=== PATIENT | male | born 1970 | race Caucasian/White ===

== ENCOUNTER 2021-08-02 12:46 | Observation (INO) | payer BC ==
--- NOTE | 2021-08-02 14:51 | EDM.PDOC ---
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 States he was riding on his truck when oxygen level dipped down to the 70s. States he does not feel short of breath now and it occasionally happens. He states that when he sleeps at night to he has this. Supposed to be seeing for sleep study but has not had time to follow-up. Denies any chest pain currently fever chills nausea vomiting or other complaints. You tested negative for Covid a few days ago as well. He states that he placed on a [facility] [employer] not too long ago around both kids. - Related Data Allergies Allergy/AdvReac Type Severity Reaction Status Date / Time No Known Allergies Allergy Verified 08/02/21 12:59 Home Meds: Home Meds Cyclobenzaprine [Flexeril] 10 mg PO TID 01/22/16 [History] oxyCODONE HCl/Acetaminophen [oxyCODONE-Acetaminophen 5-325] 1 tab PO Q4H PRN 01/22/16 [History] Past Medical History Musculoskeletal History: Reports: Back Pain, Chronic Other Musculoskeletal History: fell 30 years ago, disc problem since - Infectious Disease History Infectious Disease History: Reports: None - Past Surgical History HEENT Surgical History: Reports: None Musculoskeletal Surgical History: Reports: None Social & Family History - Family History Family Medical History: No Pertinent Family History - Recreational Drug Use Recreational Drug Use: No ED ROS GENERAL - Review of Systems Review Of Systems: See Below Constitutional: Reports: No Symptoms HEENT: Reports: No Symptoms Respiratory: Reports: No Symptoms Cardiovascular: Reports: No Symptoms Endocrine: Reports: No Symptoms GI/Abdominal: Reports: No Symptoms : Reports: No Symptoms Musculoskeletal: Reports: No Symptoms Skin: Reports: No Symptoms Neurological: Reports: No Symptoms Psychiatric: Reports: No Symptoms Hematologic/Lymphatic: Reports: No Symptoms Immunologic: Reports: No Symptoms ED EXAM, GENERAL - Physical Exam Exam: See Below Exam Limited By: No Limitations General Appearance: Alert, WD/WN, No Apparent Distress Nose: Normal Inspection Throat/Mouth: Normal Inspection Head: Atraumatic Respiratory/Chest: No Respiratory Distress, Lungs Clear, Normal Breath Sounds Cardiovascular: Normal Peripheral Pulses, Regular Rate, Rhythm GI/Abdominal: Normal Bowel Sounds, Soft, Non-Tender Extremities: Normal Inspection, Normal Range of Motion Neurological: Alert, Oriented, Normal Cognition, Normal Gait #1 Interpretation EKG Date: 08/02/21 Time: 14:53 Rhythm: NSR Rate (Beats/Min): 100 ST-T: Normal Course - Vital Signs Last Recorded V/S: Last Vital Signs Temp 97.4 F 08/02/21 12:59 Pulse 101 H 08/02/21 12:59 Resp 16 08/02/21 12:59 BP 124/73 08/02/21 12:59 Pulse Ox 94 L 08/02/21 12:59 - Orders/Labs/Meds Orders: Active Orders 24 hr Category Date Time Status Chest PE [Ang Chest] [CT] Stat Exams 08/02/21 17:21 Ordered Labs: Laboratory Tests 08/02/21 08/02/21 08/02/21 Range/Units 14:57 14:57 16:40 WBC 15.92 H (4.0-11.0) K/uL RBC 4.98 (4.50-5.90) M/uL Hgb 14.9 (13.0-17.0) g/dL Hct 44.4 (38.0-50.0) % MCV 89.2 (80.0-98.0) fL MCH 29.9 (27.0-32.0) pg MCHC 33.6 (31.0-37.0) g/dL RDW Std Deviation 46.1 (28.0-62.0) fl RDW Coeff of Wayne 14 (11.0-15.0) % Plt Count 241 (150-400) K/uL MPV 10.00 (7.40-12.00) fL Neut % (Auto) 80.6 H (48.0-80.0) % Lymph % (Auto) 13.3 L (16.0-40.0) % Scott % (Auto) 5.4 (0.0-15.0) % Eos % (Auto) 0.6 (0.0-7.0) % Baso % (Auto) 0.1 (0.0-1.5) % Neut # (Auto) 12.8 H (1.4-5.7) K/uL Lymph # (Auto) 2.1 (0.6-2.4) K/uL Scott # (Auto) 0.9 H (0.0-0.8) K/uL Eos # (Auto) 0.1 (0.0-0.7) K/uL Baso # (Auto) 0.0 (0.0-0.1) K/uL Nucleated RBC % 0.0 /100WBC Nucleated RBCs # 0 K/uL ABG pH 7.57 H (7.35-7.45) ABG pCO2 29 L (35-45) mmHG ABG pO2 74 L (80-105) mmHG ABG HCO3 26 (22-26) mEq/L ABG Total CO2 22.7 L (23-27) mmol/L ABG Base Excess 5.2 H (-2.0-3.0) Sodium 138 (136-148) mmol/L Potassium 3.9 (3.5-5.1) mmol/L Chloride 99 (98-107) mmol/L Carbon Dioxide 28.5 (21.0-32.0) mmol/L BUN 12 (7.0-18.0) mg/dL Creatinine 0.9 (0.8-1.3) mg/dL Est Cr Clr Drug Dosing 111.63 mL/min Estimated GFR (MDRD) > 60.0 ml/min Glucose 161 H (74-106) mg/dL Calcium 9.8 (8.5-10.1) mg/dL Total Bilirubin 0.4 (0.2-1.0) mg/dL AST 24 (15-37) IU/L ALT 61 (14-63) IU/L Alkaline Phosphatase 66 (46-116) U/L Troponin I < 0.050 (0.000-0.056) ng/mL Total Protein 7.6 (6.4-8.2) g/dL Albumin 3.7 (3.4-5.0) g/dL Globulin 3.9 (2.6-4.0) g/dL Albumin/Globulin Ratio 0.9 (0.9-1.6) - Re-Assessments/Exams Free Text/Narrative Re-Assessment/Exam: 08/02/21 17:22 Patient oxygen level does drop down to 80% with ambulation he gets very labored breathing. Is been tachycardic here without initially due to him use albuterol before arrival we will now get a CT PE to rule out any pulmonary emboli. 08/02/21 18:39 Patient gets up and moves around his oxygen level drops down to the mid 80s. Patient also tachycardic but has been using albuterol inhaler. Which are without PE will also admit for observation for this hypoxia. Patient also gets fatigued when he walks around as well. Departure - Departure Time of Disposition: 18:41 Disposition: Refer to Observation Condition: Good Clinical Impression: Hypoxia - Discharge Information *PRESCRIPTION DRUG MONITORING PROGRAM REVIEWED*: Not Applicable *COPY OF PRESCRIPTION DRUG MONITORING REPORT IN PATIENT PORTILLO: Not Applicable Referrals: PCP,None [Primary Care Provider] - Forms: ED Department Discharge Sepsis Event Note (ED) - Evaluation Sepsis Screening Result: No Definite Risk - Focused Exam Vital Signs: Vital Signs Temp Pulse Resp BP Pulse Ox 08/02/21 12:59 97.4 F 101 H 16 124/73 94 L - My Orders Last 24 Hours: My Active Orders 08/02/21 17:21 Chest PE [Ang Chest] [CT] Stat - Assessment/Plan Last 24 Hours: My Active Orders 08/02/21 17:21 Chest PE [Ang Chest] [CT] Stat Plan: Patient is a 50-year-old male presents today just for low oxygen. Patient here satting 94% on room air does not seem to be in distress. We will obtain x-ray labs and reassess.
[2021-08-02 15:36] LABS: BLOOD UREA NITROGEN,BUN 12 mg/dL (7.0-18.0); CARBON DIOXIDE,CO2 28.5 mmol/L (21.0-32.0); CHLORIDE,CL 99 mmol/L (98-107); GLUCOSE RANDOM 161 mg/dL (74-106); POTASSIUM,K 3.9 mmol/L (3.5-5.1); SODIUM,NA 138 mmol/L (136-148)
--- NOTE | 2021-08-02 15:50 | CR ---
INDICATION: Cough TECHNIQUE: Single view chest. FINDINGS: The lungs are clear. The heart, mediastinum and pulmonary vessels are of normal size. There is no evidence of pleural disease. IMPRESSION: Negative chest. Dictated by Gaby Feltno MD @ 08/02/2021 3:49:11 PM (Electronically Signed)
[2021-08-02] MEDS ORDERED: Iopamidol 755 MG/ML 500 ML Multipack Bottle IVPUSH ONE (19:06)
[2021-08-02 20:04] LABS: HEMOGLOBIN A1C 7.7 %
--- NOTE | 2021-08-02 20:15 | CT ---
Clinical INDICATION: Shortness of breath. TECHNIQUE: Axial intravenously infused CT cuts were performed through the chest during the peak phase of pulmonary arterial contrast opacification. 100 mL of Isovue-370 has been injected intravenously. Findings : Contrast opacification of this pulmonary arteries on is not optimal. When allowing for this limitation, there are no pulmonary emboli. There is no aortic aneurysm or dissection. There are no pulmonary nodules, masses or infiltrates. There are no pleural or pericardial fluid collections. There are no enlarged hilar or mediastinal or axillary lymph nodes. The thoracic inlet appears normal. There is a small hiatal hernia. The visualized liver, spleen, pancreas, adrenals and upper poles of both kidneys appear normal. IMPRESSION: 1. Suboptimal contrast opacification of the peripheral pulmonary arteries. When allowing for this limitation, the study is negative for pulmonary emboli. 2. Small hiatal hernia. Please note that all CT scans at this facility use dose modulation, iterative reconstruction, and/or weight-based dosing when appropriate to reduce radiation dose to as low as reasonably achievable. Dictated by Anjum Guerrero MD @ 08/02/2021 8:14:14 PM (Electronically Signed)
--- NOTE | 2021-08-02 21:03 | PCM.HP.2 ---
H&P History of Present Illness - General Date of Service: 08/02/21 Admit Problem/Dx: Admission Diagnosis/Problem Admission Diagnosis/Problem Hypoxia Source of Information: Patient, EMS, Provider History Limitations: Reports: No Limitations - History of Present Illness Initial Comments - Free Text/Narative: 50 year old morbidly obese male with resp distress a nd near syncope. hx of whitaker and worsening bronchitis 4 days ago , started on nebs alb and puffer and helped initially but then worsened to point of not being able to go outside or walk without severe whitaker. no chest pains and checked sats and down to 77% at home and felt feint and started head nodding in car on way here. . bronchitis and cough not responding to nebs until given this am abnd felt little less tight. covid vaccine booster due but vaccinated and had back in november/2020 with 2 days of resp distress then resolved. hx of no smoking . hx of snoring and fitful sleep. no known cad but mild abnormalities on ekg. no hx of known v tach or afib or arrythmias but long standing intermittent tachycardia and elevated heart rate on beta jade. no known resp issues asthma but farmers pneumonia . + orthopnea for 5 years. + whitaker but still does hard work , mild cold sensitively until 4 days ago. no cva or chf known . fam hx of cv disease. hx of dm 2 x 3-4 years on meds and a1c 7-8 no renal insuff or liver disease and minimal etoh intake. no sleep study and snores and chronic insomnia //// stress level high no depression but occasional tachipnea and anxiety episodes. no stress test ever. no p.e. or dvt. p.e. hypoxia better with big breathes and worse with walking . edema plus one . persistant tachicardia to 100-110 mild tachipnea. neck 20 plus inches. throat mallipatti 4 . cor rrr with no s3/4 distant and regular. lab reviewed chest xray normal port. pulm ct angio// negative. assess: plan admit for observation and tests . 1// whitaker sec. to bronchitis repeat covid test pending but neg 4 days ago. treat as emperic bronchitis. needs cardiac eval. medrol dose pac to be started as well . echo and sleep study telemetry overnight. pending neg covid test needs booster. 2// needs sleep studya nd treatment of likely obesity/hypoventilation syndrome. start lasix tonight. stop lisinopril for now and start losartin to prevent angioedema . control of b.p required sec to tachicardia but may be triggerring bronchospasm and needs pfts . hold beta jade for now if on . 3// weight loss needed and addressed diabetes not bad but not as goood as needs to be. back limits exertion and eats fairly helathy actually per . 4// eval for weight reduction surgery may be needed. boh Onset of Symptoms: Reports: Gradual Symptom Onset Date: 07/28/21 Duration of Symptoms: Reports: Day(s): (5) Location: Reports: Chest Improves with: Reports: Rest Worsens with: Reports: Breathing Associated Symptoms: Reports: No Other Symptoms - Related Data Allergies/Adverse Reactions: Allergies Allergy/AdvReac Type Severity Reaction Status Date / Time No Known Allergies Allergy Verified 08/02/21 12:59 Home Medications: Home Meds Cyclobenzaprine [Flexeril] 10 mg PO TID 01/22/16 [History] oxyCODONE HCl/Acetaminophen [oxyCODONE-Acetaminophen 5-325] 1 tab PO Q4H PRN 01/22/16 [History] Past Medical History Musculoskeletal History: Reports: Back Pain, Chronic Other Musculoskeletal History: fell 30 years ago, disc problem since - Infectious Disease History Infectious Disease History: Reports: None, Novel Coronavirus - Past Surgical History HEENT Surgical History: Reports: None Musculoskeletal Surgical History: Reports: None Social & Family History - Family History Family Medical History: No Pertinent Family History Cardiac: Reports: CAD, Heart Failure - Recreational Drug Use Recreational Drug Use: No H&P Review of Systems - Review of Systems: Review Of Systems: See Below General: Reports: No Symptoms HEENT: Reports: No Symptoms Pulmonary: Reports: No Symptoms, Shortness of Breath, Wheezing, Cough Cardiovascular: Reports: No Symptoms Gastrointestinal: Reports: No Symptoms Genitourinary: Reports: No Symptoms Musculoskeletal: Reports: No Symptoms Skin: Reports: No Symptoms Psychiatric: Reports: No Symptoms Neurological: Reports: No Symptoms Hematologic/Lymphatic: Reports: No Symptoms Immunologic: Reports: No Symptoms Exam - Exam Exam: See Below - Vital Signs Vital Signs: Last Vital Signs Temp 36.3 C 08/02/21 12:59 Pulse 101 H 08/02/21 12:59 Resp 16 08/02/21 12:59 BP 124/73 08/02/21 12:59 Pulse Ox 94 L 08/02/21 12:59 Weight: 185.973 kg - Exam General: Alert, Oriented, 4 HEENT: Conjunctiva Clear, EACs Clear, EOMI, Hearing Intact, Mucosa Moist & Reasnor, Nares Patent, Normal Nasal Septum, Posterior Pharynx Clear, TMs Clear, Other (mallipatti 4 ), PERRLA Neck: Supple, Trachea Midline, 2 Lungs: Clear to Auscultation, Normal Respiratory Effort, Decreased Breath Sounds Cardiovascular: Regular Rate, Regular Rhythm, Tachycardia GI/Abdominal Exam: Normal Bowel Sounds, Soft, Non-Tender, No Organomegaly, No Distention, No Abnormal Bruit, No Mass, Pelvis Stable (Male) Exam: No Hernia, Normal Inspection, Normal Prostate, Circumcised Rectal (Males) Exam: Normal Rectal Tone, Prostate Normal, Deferred. No: Normal Exam Back Exam: Normal Inspection, Full Range of Motion, NT Extremities: Normal Inspection, Normal Range of Motion, Non-Tender, Normal Capillary Refill, Pedal Edema. No: No Pedal Edema Peripheral Pulses: 1+: Carotid (L), Carotid (R) Skin: Warm, Dry, Intact Neurological: Cranial Nerves Intact, Reflexes Equal Bilateral Neuro Extensive - Mental Status: Alert, Oriented x3, Normal Mood/Affect, Normal Cognition Neuro Extensive - Motor, Sensory, Reflexes: CN II-XII Intact, Normal Gait, Normal Reflexes Psychiatric: Alert, Normal Affect, Normal Mood - Patient Data Lab Results Last 24 hrs: Laboratory Results - last 24 hr 08/02/21 08/02/21 08/02/21 Range/Units 14:57 14:57 14:57 WBC 15.92 H (4.0-11.0) K/uL RBC 4.98 (4.50-5.90) M/uL Hgb 14.9 (13.0-17.0) g/dL Hct 44.4 (38.0-50.0) % MCV 89.2 (80.0-98.0) fL MCH 29.9 (27.0-32.0) pg MCHC 33.6 (31.0-37.0) g/dL RDW Std Deviation 46.1 (28.0-62.0) fl RDW Coeff of Wayne 14 (11.0-15.0) % Plt Count 241 (150-400) K/uL MPV 10.00 (7.40-12.00) fL Neut % (Auto) 80.6 H (48.0-80.0) % Lymph % (Auto) 13.3 L (16.0-40.0) % Brooks % (Auto) 5.4 (0.0-15.0) % Eos % (Auto) 0.6 (0.0-7.0) % Baso % (Auto) 0.1 (0.0-1.5) % Neut # (Auto) 12.8 H (1.4-5.7) K/uL Lymph # (Auto) 2.1 (0.6-2.4) K/uL Brooks # (Auto) 0.9 H (0.0-0.8) K/uL Eos # (Auto) 0.1 (0.0-0.7) K/uL Baso # (Auto) 0.0 (0.0-0.1) K/uL Nucleated RBC % 0.0 /100WBC Nucleated RBCs # 0 K/uL ABG pH (7.35-7.45) ABG pCO2 (35-45) mmHG ABG pO2 (80-105) mmHG ABG HCO3 (22-26) mEq/L ABG Total CO2 (23-27) mmol/L ABG Base Excess (-2.0-3.0) Sodium 138 (136-148) mmol/L Potassium 3.9 (3.5-5.1) mmol/L Chloride 99 (98-107) mmol/L Carbon Dioxide 28.5 (21.0-32.0) mmol/L BUN 12 (7.0-18.0) mg/dL Creatinine 0.9 (0.8-1.3) mg/dL Est Cr Clr Drug Dosing 111.63 mL/min Estimated GFR (MDRD) > 60.0 ml/min Glucose 161 H (74-106) mg/dL Hemoglobin A1c 7.7 H (4.5 - 6.2) % Calcium 9.8 (8.5-10.1) mg/dL Total Bilirubin 0.4 (0.2-1.0) mg/dL AST 24 (15-37) IU/L ALT 61 (14-63) IU/L Alkaline Phosphatase 66 (46-116) U/L Troponin I < 0.050 (0.000-0.056) ng/mL Total Protein 7.6 (6.4-8.2) g/dL Albumin 3.7 (3.4-5.0) g/dL Globulin 3.9 (2.6-4.0) g/dL Albumin/Globulin Ratio 0.9 (0.9-1.6) 08/02/21 Range/Units 16:40 WBC (4.0-11.0) K/uL RBC (4.50-5.90) M/uL Hgb (13.0-17.0) g/dL Hct (38.0-50.0) % MCV (80.0-98.0) fL MCH (27.0-32.0) pg MCHC (31.0-37.0) g/dL RDW Std Deviation (28.0-62.0) fl RDW Coeff of Wayne (11.0-15.0) % Plt Count (150-400) K/uL MPV (7.40-12.00) fL Neut % (Auto) (48.0-80.0) % Lymph % (Auto) (16.0-40.0) % Brooks % (Auto) (0.0-15.0) % Eos % (Auto) (0.0-7.0) % Baso % (Auto) (0.0-1.5) % Neut # (Auto) (1.4-5.7) K/uL Lymph # (Auto) (0.6-2.4) K/uL Brooks # (Auto) (0.0-0.8) K/uL Eos # (Auto) (0.0-0.7) K/uL Baso # (Auto) (0.0-0.1) K/uL Nucleated RBC % /100WBC Nucleated RBCs # K/uL ABG pH 7.57 H (7.35-7.45) ABG pCO2 29 L (35-45) mmHG ABG pO2 74 L (80-105) mmHG ABG HCO3 26 (22-26) mEq/L ABG Total CO2 22.7 L (23-27) mmol/L ABG Base Excess 5.2 H (-2.0-3.0) Sodium (136-148) mmol/L Potassium (3.5-5.1) mmol/L Chloride (98-107) mmol/L Carbon Dioxide (21.0-32.0) mmol/L BUN (7.0-18.0) mg/dL Creatinine (0.8-1.3) mg/dL Est Cr Clr Drug Dosing mL/min Estimated GFR (MDRD) ml/min Glucose (74-106) mg/dL Hemoglobin A1c (4.5 - 6.2) % Calcium (8.5-10.1) mg/dL Total Bilirubin (0.2-1.0) mg/dL AST (15-37) IU/L ALT (14-63) IU/L Alkaline Phosphatase (46-116) U/L Troponin I (0.000-0.056) ng/mL Total Protein (6.4-8.2) g/dL Albumin (3.4-5.0) g/dL Globulin (2.6-4.0) g/dL Albumin/Globulin Ratio (0.9-1.6) Result Diagrams: 08/02/21 14:57 08/02/21 14:57 Sepsis Event Note - Evaluation Sepsis Screening Result: No Definite Risk - Focused Exam Vital Signs: Vital Signs Temp Pulse Resp BP Pulse Ox 08/02/21 12:59 36.3 C 101 H 16 124/73 94 L - Problem List (1) Morbid obesity with BMI of 50.0-59.9, adult SNOMED Code(s): 045821672, 55130170363172 ICD Code: E66.01 - MORBID (SEVERE) OBESITY DUE TO EXCESS CALORIES; Z68.43 - BODY MASS INDEX [BMI] 50.0-59.9, ADULT Status: Acute Priority: High Curren t Visit: Yes Onset Date: ~08/02/21 Problem Details: highly santosh. 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 SNOMED Code(s): 22150558, 179649061 ICD Code: I50.40 - UNSP COMBINED SYSTOLIC AND DIASTOLIC (CONGESTIVE) HRT FAIL Status: Acute Priority: Medium Current Visit: Yes Onset Date: ~08/02/21 Qualifiers: Heart failure chronicity: chronic Qualified Code(s): I50.42 - Chronic combined systolic (congestive) and diastolic (congestive) heart failure Problem List Initiated/Reviewed/Updated: Yes Orders Last 24hrs: Active Orders 24 hr Category Date Time Status Admission Status [Patient Status] [ADT] Stat ADT 08/02/21 18:53 Active Assessment/Plan Comment:: [birth year]89 year old morbidly obese male with resp distress a nd near syncope. hx of whitaker and worsening bronchitis 4 days ago , started on nebs alb and puffer and helped initially but then worsened to point of not being able to go outside or walk without severe whitaker. no chest pains and checked sats and down to 77% at home and felt feint and started head nodding in car on way here. . bronchitis and cough not responding to nebs until given this am abnd felt little less tight. covid vaccine booster due but vaccinated and had back in november/2020 with 2 days of resp distress then resolved. hx of no smoking . hx of snoring and fitful sleep. no known cad but mild abnormalities on ekg. no hx of known v tach or afib or arrythmias but long standing intermittent tachycardia and elevated heart rate on beta jade. no known resp issues asthma but farmers pneumonia . + orthopnea for 5 years. + whitaker but still does hard work , mild cold sensitively until 4 days ago. no cva or chf known . fam hx of cv disease. hx of dm 2 x 3-4 years on meds and a1c 7-8 no renal insuff or liver disease and minimal etoh intake. no sleep study and snores and chronic insomnia //// stress level high no depression but occasional tachipnea and anxiety episodes. no stress test ever. no p.e. or dvt. p.e. hypoxia better with big breathes and worse with walking . edema plus one . persistant tachicardia to 100-110 mild tachipnea. neck 20 plus inches. throat mallipatti 4 . cor rrr with no s3/4 distant and regular. lab reviewed chest xray normal port. pulm ct angio// negative. assess: plan admit for observation and tests . 1// whitaekr sec. to bronchitis repeat covid test pending but neg 4 days ago. treat as emperic bronchitis. needs cardiac eval. medrol dose pac to be started as well . echo and sleep study telemetry overnight. pending neg covid test needs booster. 2// needs sleep studya nd treatment of likely obesity/hypoventilation syndrome. start lasix tonight. stop lisinopril for now and start losartin to prevent angioedema . control of b.p required sec to tachicardia but may be triggerring bronchospasm and needs pfts . hold beta jade for now if on . 3// weight loss needed and addressed diabetes not bad but not as goood as needs to be. back limits exertion and eats fairly helathy actually per . 4// eval for weight reduction surgery may be needed. boh - Mortality Measure Prognosis:: Good
[2021-08-02] MEDS ORDERED: Temazepam 15 MG Cap PO PRN (21:13)
[2021-08-02] MEDS ORDERED: Acetaminophen/HYDROcodone 325-5 MG Tab PO PRN (21:13)
[2021-08-02] MEDS ORDERED: Enoxaparin 40 MG/0.4 ML Syringe SUBCUT SCH (21:15)
[2021-08-02] MEDS ORDERED: Acetaminophen/oxyCODONE 325-5 MG Tab PO PRN (21:22)
[2021-08-02 22:12] LABS: BLOOD UREA NITROGEN,BUN 12 mg/dL (7.0-18.0); CARBON DIOXIDE,CO2 25.5 mmol/L (21.0-32.0); CHLORIDE,CL 99 mmol/L (98-107); GLUCOSE RANDOM 155 mg/dL (74-106); POTASSIUM,K 4.1 mmol/L (3.5-5.1); SODIUM,NA 139 mmol/L (136-148)
[2021-08-02] MEDS: Cephalexin 250 MG Cap PO SCH (22:17)
[2021-08-02] MEDS ORDERED: Albuterol 0.083% 2.5 MG/3 ML Neb Soln NEB PRN (22:29)
[2021-08-03] MEDS: Cephalexin 250 MG Cap PO SCH ×2 (05:09→12:41)
[2021-08-03] MEDS ORDERED: predniSONE 20 MG Tab PO SCH (08:30)
[2021-08-03] MEDS ORDERED: Furosemide 20 MG Tab PO SCH (09:00)
[2021-08-03 11:54] VITALS: BP 125/80; PULSE 89
--- NOTE | 2021-08-03 11:56 | PCM.DCSUM1 ---
Discharge Summary - Hospital Course Brief History: 50 year old morbidly obese male with resp distress a nd near syncope. hx of whitaker and worsening bronchitis 4 days ago , started on nebs alb and puffer and helped initially but then worsened to point of not being able to go outside or walk without severe whitaker. no chest pains and checked sats and down to 77% at home and felt feint and started head nodding in car on way here. . bronchitis and cough not responding to nebs until given this am abnd felt little less tight. covid vaccine booster due but vaccinated and had back in november/2020 with 2 days of resp distress then resolved. hx of no smoking . hx of snoring and fitful sleep. no known cad but mild abnormalities on ekg. no hx of known v tach or afib or arrythmias but long standing intermittent tachycardia and elevated heart rate on beta jade. no known resp issues asthma but farmers pneumonia . + orthopnea for 5 years. + whitaker but still does hard work , mild cold sensitively until 4 days ago. no cva or chf known . fam hx of cv disease. hx of dm 2 x 3-4 years on meds and a1c 7-8. no renal insuff or liver disease and minimal etoh intake. no sleep study and snores and chronic insomnia //// stress level high no depression but occasional tachipnea and anxiety episodes. no stress test ever. no p.e. or dvt. chest xray normal port. pulm ct angio// negative. - Discharge Data Discharge Date: 08/03/21 Discharge Disposition: Home, Self-Care 01 Condition: Good - Referral to Home Health Primary Care Physician: PCP None - Discharge Diagnosis/Problem(s) (1) Hypoxia SNOMED Code(s): 295897161 ICD Code: R09.02 - HYPOXEMIA Status: Acute Current Visit: Yes (2) Morbid obesity with BMI of 50.0-59.9, adult SNOMED Code(s): 332175047, 42628282205847 ICD Code: E66.01 - MORBID (SEVERE) OBESITY DUE TO EXCESS CALORIES; Z68.43 - BODY MASS INDEX [BMI] 50.0-59.9, ADULT Status: Acute Priority: High Current Visit: Yes Onset Date: ~08/02/21 Problem Details: highly santosh. for sleep apnea syndrome as well (3) HTN (hypertension) SNOMED Code(s): 26819573 ICD Code: I10 - ESSENTIAL (PRIMARY) HYPERTENSION Status: Acute Current Visit: Yes (4) Diabetes mellitus SNOMED Code(s): 37852154 ICD Code: E11.9 - TYPE 2 DIABETES MELLITUS WITHOUT COMPLICATIONS Status: Acute Priority: Medium Current Visit: Yes Onset Date: ~08/02/21 Qualifiers: Diabetes mellitus type: type 2 Diabetes mellitus halfway insulin use: without halfway use Diabetes mellitus complication status: with circulatory complication - Patient Summary/Data Consults: Consultations 08/02/21 21:13 Respiratory Care Assess and Treatment [CONS] Routine Hospital Course: Admission diagnoses Hypoxia Dyspnea on exertion Bronchitis Discharge diagnoses Possible restrictive airway disease, obesity hypoventilation syndrome Bronchitis Hypoxia resolved Other PMH Hypertension Morbid obesity Diabetes type 2 Diagnoses admitted secondary to hypoxia especially on exertion. He was noted to be dyspneic as well. Saturations on room air noted to be 77% on arrival. Patient treated with supplemental oxygen and was then weaned off and has been on room air with ambulation today. Patient reports he is feeling much better he is coughing and having sputum production. Reports that he is feeling things are "loosening up". He was counseled heavily on weight management and the likelihood that this bronchitis was worsened due to obesity hypoventilation syndrome as his lungs were unable to work appropriately with the added weight on his body. Patient was treated with Keflex as well as albuterol inhaler. He was also given prednisone 40 mg, for bronchitis. Patient obtained echo today which results are pending. Patient again counseled heavily that he will need extensive outpatient work-up including sleep study, stress test and pulmonary function test. He was switched to losartan due to risk of angioedema with lisinopril. Prescription sent for losartan as well as hydrochlorothiazide. Patient counseled on this and verbalized understanding. Patient will be discharged home today. Again counseled very heavily on weight management and the need to lose weight. This was discussed with as well with Dr. Lema. Patient will have follow-up with Vania Valero NP in [place] per patient request. He request that she orders stress test sleep study and PFTs. As stated prior echo results pending. Patient will be discharged home with 4 more days of prednisone 40 mg, cefdinir 300 mg p.o. twice daily for 4 more days and continue inhaler he was provided previously. He is to return to the ER clinic if concerns should arise sooner. - Patient Instructions Diet: Heart Healthy Diet Activity: Cough & Deep Breathe, No Strenuous Activities Showering/Bathing: May Shower Notify Provider of: Fever, Increased Pain, Swelling and Redness, Drainage, Nause a and/or Vomiting Other/Special Instructions: Need outpatient follow-up for stress test, sleep study and pulmonary function test. - Discharge Plan *PRESCRIPTION DRUG MONITORING PROGRAM REVIEWED*: Not Applicable *COPY OF PRESCRIPTION DRUG MONITORING REPORT IN PATIENT PORTILLO: Not Applicable Prescriptions/Med Rec: hydroCHLOROthiazide [Hydrochlorothiazide] 12.5 mg PO DAILY #30 tablet Losartan Potassium 25 mg PO DAILY #30 tablet Cefdinir [Omnicef] 300 mg PO BID #8 cap predniSONE 40 mg PO WITHBREAKFAST #8 tablet Home Medications: Home Meds Albuterol Sulfate [Albuterol Sulfate Hfa] 2 inh IH Q4H PRN 08/03/21 [History] Cefdinir [Omnicef] 300 mg PO BID #8 cap 08/03/21 [Rx] Ipratropium/Albuterol Sulfate [Iprat-Albut 0.5-3(2.5) mg/3 ml] 3 ml NEB QID 08/03/21 [History] Losartan Potassium 25 mg PO DAILY #30 tablet 08/03/21 [Rx] Pioglitazone [Actos] 7.5 mg PO ACBREAKFAST 08/03/21 [History] glyBURIDE [Glyburide] 2.5 mg PO DAILY 08/03/21 [History] hydroCHLOROthiazide [Hydrochlorothiazide] 12.5 mg PO DAILY #30 tablet 08/03/21 [Rx] metFORMIN [Glucophage] 425 mg PO DAILY 08/03/21 [History] predniSONE 40 mg PO WITHBREAKFAST #8 tablet 08/03/21 [Rx] Oxygen Therapy Mode: Room Air Patient Handouts: Hypoxia, Cefdinir Capsules, Losartan Tablets, Heart-Healthy Eating Plan, [id number], Healthy Eating, Prednisone tablets, Obesity, Adult, [id number], Hydrochlorothiazide, HCTZ Oral Capsules or Tablets Referrals: Vania Valero NP [Ordering Only Provider] - 08/13/21 3:00 pm (Please arrive 15 minutes early with your IV and wearing a face covering.) - Discharge Summary/Plan Comment DC Time >30 min.: No Total # of Minutes for Discharge Time: 20 - Patient Data Vitals - Most Recent: Last Vital Signs Temp 97.4 F 08/03/21 11:53 Pulse 89 08/03/21 11:53 Resp 20 08/03/21 11:53 BP 125/80 08/03/21 11:53 Pulse Ox 91 L 08/03/21 11:53 Weight - Most Recent: 188.241 kg I&O - Last 24 hours: Intake & Output 08/02/21 08/03/21 08/03/21 22:59 06:59 14:59 Intake Total 300 Balance 300 Lab Results - Last 24 hrs: Laboratory Results - last 24 hr 08/02/21 08/02/21 08/02/21 Range/Units 14:57 14:57 14:57 WBC 15.92 H (4.0-11.0) K/uL RBC 4.98 (4.50-5.90) M/uL Hgb 14.9 (13.0-17.0) g/dL Hct 44.4 (38.0-50.0) % MCV 89.2 (80.0-98.0) fL MCH 29.9 (27.0-32.0) pg MCHC 33.6 (31.0-37.0) g/dL RDW Std Deviation 46.1 (28.0-62.0) fl RDW Coeff of Wayne 14 (11.0-15.0) % Plt Count 241 (150-400) K/uL MPV 10.00 (7.40-12.00) fL Neut % (Auto) 80.6 H (48.0-80.0) % Lymph % (Auto) 13.3 L (16.0-40.0) % Butts % (Auto) 5.4 (0.0-15.0) % Eos % (Auto) 0.6 (0.0-7.0) % Baso % (Auto) 0.1 (0.0-1.5) % Neut # (Auto) 12.8 H (1.4-5.7) K/uL Lymph # (Auto) 2.1 (0.6-2.4) K/uL Butts # (Auto) 0.9 H (0.0-0.8) K/uL Eos # (Auto) 0.1 (0.0-0.7) K/uL Baso # (Auto) 0.0 (0.0-0.1) K/uL Nucleated RBC % 0.0 /100WBC Nucleated RBCs # 0 K/uL ABG pH (7.35-7.45) ABG pCO2 (35-45) mmHG ABG pO2 (80-105) mmHG ABG HCO3 (22-26) mEq/L ABG Total CO2 (23-27) mmol/L ABG Base Excess (-2.0-3.0) Sodium 138 (136-148) mmol/L Potassium 3.9 (3.5-5.1) mmol/L Chloride 99 (98-107) mmol/L Carbon Dioxide 28.5 (21.0-32.0) mmol/L BUN 12 (7.0-18.0) mg/dL Creatinine 0.9 (0.8-1.3) mg/dL Est Cr Clr Drug Dosing 111.63 mL/min Estimated GFR (MDRD) > 60.0 ml/min Glucose 161 H (74-106) mg/dL POC Glucose (70-99) mg/dL Hemoglobin A1c 7.7 H (4.5 - 6.2) % Calcium 9.8 (8.5-10.1) mg/dL Magnesium (1.8-2.4) mg/dL Total Bilirubin 0.4 (0.2-1.0) mg/dL AST 24 (15-37) IU/L ALT 61 (14-63) IU/L Alkaline Phosphatase 66 (46-116) U/L Troponin I < 0.050 (0.000-0.056) ng/mL B-Natriuretic Peptide (<100) PG/ML Total Protein 7.6 (6.4-8.2) g/dL Albumin 3.7 (3.4-5.0) g/dL Globulin 3.9 (2.6-4.0) g/dL Albumin/Globulin Ratio 0.9 (0.9-1.6) Urine Color Urine Appearance Urine pH (5.0-8.0) Ur Specific [place] (1.001-1.035) Urine Protein (NEGATIVE) mg/dL Urine Glucose (UA) (NEGATIVE) mg/dL Urine Ketones (NEGATIVE) mg/dL Urine Occult Blood (NEGATIVE) Urine Nitrite (NEGATIVE) Urine Bilirubin (NEGATIVE) Urine Urobilinogen (<2.0) EU/dL Ur Leukocyte Esterase (NEGATIVE) SARS-CoV-2 RNA (JANICE) (NEGATIVE) 08/02/21 08/02/21 08/02/21 Range/Units 16:40 19:00 21:38 WBC (4.0-11.0) K/uL RBC (4.50-5.90) M/uL Hgb (13.0-17.0) g/dL Hct (38.0-50.0) % MCV (80.0-98.0) fL MCH (27.0-32.0) pg MCHC (31.0-37.0) g/dL RDW Std Deviation (28.0-62.0) fl RDW Coeff of Way[place] (11.0-15.0) % Plt Count (150-400) K/uL MPV (7.40-12.00) fL Neut % (Auto) (48.0-80.0) % Lymph % (Auto) (16.0-40.0) % Butts % (Auto) (0.0-15.0) % Eos % (Auto) (0.0-7.0) % Baso % (Auto) (0.0-1.5) % Neut # (Auto) (1.4-5.7) K/uL Lymph # (Auto) (0.6-2.4) K/uL Butts # (Auto) (0.0-0.8) K/uL Eos # (Auto) (0.0-0.7) K/uL Baso # (Auto) (0.0-0.1) K/uL Nucleated RBC % /100WBC Nucleated RBCs # K/uL ABG pH 7.57 H (7.35-7.45) ABG pCO2 29 L (35-45) mmHG ABG pO2 74 L (80-105) mmHG ABG HCO3 26 (22-26) mEq/L ABG Total CO2 22.7 L (23-27) mmol/L ABG Base Excess 5.2 H (-2.0-3.0) Sodium 139 (136-148) mmol/L Potassium 4.1 (3.5-5.1) mmol/L Chloride 99 (98-107) mmol/L Carbon Dioxide 25.5 (21.0-32.0) mmol/L BUN 12 (7.0-18.0) mg/dL Creatinine 0.8 (0.8-1.3) mg/dL Est Cr Clr Drug Dosing 125.58 mL/min Estimated GFR (MDRD) > 60.0 ml/min Glucose 155 H (74-106) mg/dL POC Glucose (70-99) mg/dL Hemoglobin A1c (4.5 - 6.2) % Calcium 9.6 (8.5-10.1) mg/dL Magnesium (1.8-2.4) mg/dL Total Bilirubin 0.6 (0.2-1.0) mg/dL AST 30 (15-37) IU/L ALT 59 (14-63) IU/L Alkaline Phosphatase 67 (46-116) U/L Troponin I (0.000-0.056) ng/mL B-Natriuretic Peptide (<100) PG/ML Total Protein 7.0 (6.4-8.2) g/dL Albumin 3.7 (3.4-5.0) g/dL Globulin 3.3 (2.6-4.0) g/dL Albumin/Globulin Ratio 1.1 (0.9-1.6) Urine Color Urine Appearance Urine pH (5.0-8.0) Ur Specific [place] (1.001-1.035) Urine Protein (NEGATIVE) mg/dL Urine Glucose (UA) (NEGATIVE) mg/dL Urine Ketones (NEGATIVE) mg/dL Urine Occult Blood (NEGATIVE) Urine Nitrite (NEGATIVE) Urine Bilirubin (NEGATIVE) Urine Urobilinogen (<2.0) EU/dL Ur Leukocyte Esterase (NEGATIVE) SARS-CoV-2 RNA (JANICE) NEGATIVE (NEGATIVE) 08/02/21 08/02/21 08/03/21 Range/Units 21:38 22:34 05:48 WBC (4.0-11.0) K/uL RBC (4.50-5.90) M/uL Hgb (13.0-17.0) g/dL Hct (38.0-50.0) % MCV (80.0-98.0) fL MCH (27.0-32.0) pg MCHC (31.0-37.0) g/dL RDW Std Deviation (28.0-62.0) fl RDW Coeff of [place] (11.0-15.0) % Plt Count (150-400) K/uL MPV (7.40-12.00) fL Neut % (Auto) (48.0-80.0) % Lymph % (Auto) (16.0-40.0) % Butts % (Auto) (0.0-15.0) % Eos % (Auto) (0.0-7.0) % Baso % (Auto) (0.0-1.5) % Neut # (Auto) (1.4-5.7) K/uL Lymph # (Auto) (0.6-2.4) K/uL Butts # (Auto) (0.0-0.8) K/uL Eos # (Auto) (0.0-0.7) K/uL Baso # (Auto) (0.0-0.1) K/uL Nucleated RBC % /100WBC Nucleated RBCs # K/uL ABG pH (7.35-7.45) ABG pCO2 (35-45) mmHG ABG pO2 (80-105) mmHG ABG HCO3 (22-26) mEq/L ABG Total CO2 (23-27) mmol/L ABG Base Excess (-2.0-3.0) Sodium (136-148) mmol/L Potassium (3.5-5.1) mmol/L Chloride (98-107) mmol/L Carbon Dioxide (21.0-32.0) mmol/L BUN (7.0-18.0) mg/dL Creatinine (0.8-1.3) mg/dL Est Cr Clr Drug Dosing mL/min Estimated GFR (MDRD) ml/min Glucose (74-106) mg/dL POC Glucose 145 H (70-99) mg/dL Hemoglobin A1c (4.5 - 6.2) % Calcium (8.5-10.1) mg/dL Magnesium (1.8-2.4) mg/dL Total Bilirubin (0.2-1.0) mg/dL AST (15-37) IU/L ALT (14-63) IU/L Alkaline Phosphatase (46-116) U/L Troponin I (0.000-0.056) ng/mL B-Natriuretic Peptide 3 (<100) PG/ML Total Protein (6.4-8.2) g/dL Albumin (3.4-5.0) g/dL Globulin (2.6-4.0) g/dL Albumin/Globulin Ratio (0.9-1.6) Urine Color ORANGE Urine Appearance CLEAR Urine pH 6.0 (5.0-8.0) Ur Specific [place] >= 1.030 (1.001-1.035) Urine Protein NEGATIVE (NEGATIVE) mg/dL Urine Glucose (UA) NEGATIVE (NEGATIVE) mg/dL Urine Ketones NEGATIVE (NEGATIVE) mg/dL Urine Occult Blood NEGATIVE (NEGATIVE) Urine Nitrite NEGATIVE (NEGATIVE) Urine Bilirubin NEGATIVE (NEGATIVE) Urine Urobilinogen 0.2 (<2.0) EU/dL Ur Leukocyte Esterase NEGATIVE (NEGATIVE) SARS-CoV-2 RNA (JANICE) (NEGATIVE) 08/03/21 08/03/21 08/03/21 Range/Units 06:31 07:02 07:02 WBC (4.0-11.0) K/uL RBC (4.50-5.90) M/uL Hgb (13.0-17.0) g/dL Hct (38.0-50.0) % MCV (80.0-98.0) fL MCH (27.0-32.0) pg MCHC (31.0-37.0) g/dL RDW Std Deviation (28.0-62.0) fl RDW Coeff of [place] (11.0-15.0) % Plt Count (150-400) K/uL MPV (7.40-12.00) fL Neut % (Auto) (48.0-80.0) % Lymph % (Auto) (16.0-40.0) % Butts % (Auto) (0.0-15.0) % Eos % (Auto) (0.0-7.0) % Baso % (Auto) (0.0-1.5) % Neut # (Auto) (1.4-5.7) K/uL Lymph # (Auto) (0.6-2.4) K/uL Butts # (Auto) (0.0-0.8) K/uL Eos # (Auto) (0.0-0.7) K/uL Baso # (Auto) (0.0-0.1) K/uL Nucleated RBC % /100WBC Nucleated RBCs # K/uL ABG pH (7.35-7.45) ABG pCO2 (35-45) mmHG ABG pO2 (80-105) mmHG ABG HCO3 (22-26) mEq/L ABG Total CO2 (23-27) mmol/L ABG Base Excess (-2.0-3.0) Sodium (136-148) mmol/L Potassium (3.5-5.1) mmol/L Chloride (98-107) mmol/L Carbon Dioxide (21.0-32.0) mmol/L BUN (7.0-18.0) mg/dL Creatinine (0.8-1.3) mg/dL Est Cr Clr Drug Dosing mL/min Estimated GFR (MDRD) ml/min Glucose (74-106) mg/dL POC Glucose 159 H (70-99) mg/dL Hemoglobin A1c (4.5 - 6.2) % Calcium (8.5-10.1) mg/dL Magnesium 2.1 (1.8-2.4) mg/dL Total Bilirubin (0.2-1.0) mg/dL AST (15-37) IU/L ALT (14-63) IU/L Alkaline Phosphatase (46-116) U/L Troponin I < 0.050 (0.000-0.056) ng/mL B-Natriuretic Peptide (<100) PG/ML Total Protein (6.4-8.2) g/dL Albumin (3.4-5.0) g/dL Globulin (2.6-4.0) g/dL Albumin/Globulin Ratio (0.9-1.6) Urine Color Urine Appearance Urine pH (5.0-8.0) Ur Specific [place] (1.001-1.035) Urine Protein (NEGATIVE) mg/dL Urine Glucose (UA) (NEGATIVE) mg/dL Urine Ketones (NEGATIVE) mg/dL Urine Occult Blood (NEGATIVE) Urine Nitrite (NEGATIVE) Urine Bilirubin (NEGATIVE) Urine Urobilinogen (<2.0) EU/dL Ur Leukocyte Esterase (NEGATIVE) SARS-CoV-2 RNA (JANICE) (NEGATIVE) 08/03/21 Range/Units 11:37 WBC (4.0-11.0) K/uL RBC (4.50-5.90) M/uL Hgb (13.0-17.0) g/dL Hct (38.0-50.0) % MCV (80.0-98.0) fL MCH (27.0-32.0) pg MCHC (31.0-37.0) g/dL RDW Std Deviation (28.0-62.0) fl RDW Coeff of [place] (11.0-15.0) % Plt Count (150-400) K/uL MPV (7.40-12.00) fL Neut % (Auto) (48.0-80.0) % Lymph % (Auto) (16.0-40.0) % Butts % (Auto) (0.0-15.0) % Eos % (Auto) (0.0-7.0) % Baso % (Auto) (0.0-1.5) % Neut # (Auto) (1.4-5.7) K/uL Lymph # (Auto) (0.6-2.4) K/uL Butts # (Auto) (0.0-0.8) K/uL Eos # (Auto) (0.0-0.7) K/uL Baso # (Auto) (0.0-0.1) K/uL Nucleated RBC % /100WBC Nucleated RBCs # K/uL ABG pH (7.35-7.45) ABG pCO2 (35-45) mmHG ABG pO2 (80-105) mmHG ABG HCO3 (22-26) mEq/L ABG Total CO2 (23-27) mmol/L ABG Base Excess (-2.0-3.0) Sodium (136-148) mmol/L Potassium (3.5-5.1) mmol/L Chloride (98-107) mmol/L Carbon Dioxide (21.0-32.0) mmol/L BUN (7.0-18.0) mg/dL Creatinine (0.8-1.3) mg/dL Est Cr Clr Drug Dosing mL/min Estimated GFR (MDRD) ml/min Glucose (74-106) mg/dL POC Glucose 154 H (70-99) mg/dL Hemoglobin A1c (4.5 - 6.2) % Calcium (8.5-10.1) mg/dL Magnesium (1.8-2.4) mg/dL Total Bilirubin (0.2-1.0) mg/dL AST (15-37) IU/L ALT (14-63) IU/L Alkaline Phosphatase (46-116) U/L Troponin I (0.000-0.056) ng/mL B-Natriuretic Peptide (<100) PG/ML Total Protein (6.4-8.2) g/dL Albumin (3.4-5.0) g/dL Globulin (2.6-4.0) g/dL Albumin/Globulin Ratio (0.9-1.6) Urine Color Urine Appearance Urine pH (5.0-8.0) Ur Specific [place] (1.001-1.035) Urine Protein (NEGATIVE) mg/dL Urine Glucose (UA) (NEGATIVE) mg/dL Urine Ketones (NEGATIVE) mg/dL Urine Occult Blood (NEGATIVE) Urine Nitrite (NEGATIVE) Urine Bilirubin (NEGATIVE) Urine Urobilinogen (<2.0) EU/dL Ur Leukocyte Esterase (NEGATIVE) SARS-CoV-2 RNA (JANICE) (NEGATIVE) Med Orders - Current: Current Medications Hydrocodone Bitart/Acetaminophen (Acetaminophen/Hydrocodone 325-5 Mg Tab) 1 tab PO Q4H PRN PRN Reason: Pain (moderate 4-6) Albuterol (Albuterol 0.083% 2.5 Mg/3 Ml Neb Soln) 2.5 mg NEB Q6HRRT PRN PRN Reason: Congestion Last Admin: 08/02/21 22:41 Dose: 2.5 mg Documented by: Cephalexin (Cephalexin 250 Mg Cap) 250 mg PO QID [facility] Last Admin: 08/03/21 05:09 Dose: 250 mg Documented by: Enoxaparin Sodium (Enoxaparin 40 Mg/0.4 Ml Syringe) 40 mg SUBCUT BEDTIME [facility] Last Admin: 08/02/21 22:17 Dose: 40 mg Documented by: Furosemide (Furosemide 20 Mg Tab) 20 mg PO DAILY [facility] Last Admin: 08/03/21 09:58 Dose: 20 mg Documented by: Oxycodone/Acetaminophen (Acetaminophen/Oxycodone 325-5 Mg Tab) 1 tab PO Q4H PRN PRN Reason: Pain Prednisone (Prednisone 20 Mg Tab) 40 mg PO WITHBREAKFAST [facility] Last Admin: 08/03/21 09:58 Dose: 40 mg Documented by: Discontinued Medications Iopamidol (Iopamidol 755 Mg/Ml 500 Ml Multipack Bottle) 100 ml IVPUSH ONETIME ONE Stop: 08/02/21 19:07 Last Admin: 08/02/21 19:06 Dose: 100 ml Documented by: Temazepam (Temazepam 15 Mg Cap) 15 mg PO BEDTIME PRN PRN Reason: Sleep - Exam Quality Assessment: Reports: DVT Prophylaxis. Denies: Supplemental Oxygen General: Reports: Alert, Oriented, Cooperative, No Acute Distress Lungs: Reports: Clear to Auscultation, Normal Respiratory Effort Cardiovascular: Reports: Regular Rate, Regular Rhythm GI/Abdominal Exam: Normal Bowel Sounds, Soft, Non-Tender Extremities: Normal Inspection, Normal Range of Motion, No Pedal Edema, Normal Capillary Refill Neurological: Reports: No New Focal Deficit Psy/Mental Status: Reports: Alert, Normal Affect, Normal Mood
== END 2021-08-03 13:20 | disposition home or self-care (01) ==
LOC: MW.ED 12:46 → MW.MS 18:53
PROVIDERS: ADMIT Pediatrics; ATTEND Pediatrics
DX: R09.02 Hypoxemia (principal); J40 Bronchitis, not specified as acute or chronic; R06.03 Acute respiratory distress; I11.0 Hypertensive heart disease with heart failure; R55 Syncope and collapse; I50.42 Chronic combined systolic (congestive) and diastolic (congestive) heart failure; E11.9 Type 2 diabetes mellitus without complications; G89.29 Other chronic pain; M54.50 Low back pain, unspecified; E66.01 Morbid (severe) obesity due to excess calories; Z68.43 Body mass index [BMI] 50.0-59.9, adult; Z79.899 Other long term (current) drug therapy; Z79.84 Long term (current) use of oral hypoglycemic drugs; Z20.822 Contact with and (suspected) exposure to COVID-19
CPT/HCPCS: 36415; 36600; 71045; 71275; 80053; 81003; 82803; 82947; 83036; 83735; 83880; 84484; 85025; 87635; 93005; 93306; 99285; A9270; J1650; Q9967; 93010; 96372; G0378; U0002

== ENCOUNTER 2021-08-09 00:07 | Emergency (ER) | payer BC ==
[2021-08-09] MEDS ORDERED: Dexamethasone 10 MG/ML SDV IVPUSH ONE (00:33)
[2021-08-09] MEDS ORDERED: Albuterol/Ipratropium 3.0-0.5 MG/3 ML Neb Soln NEB ONE (00:33)
[2021-08-09] MEDS ORDERED: Sodium Chloride 0.9% 2.5 ML Syringe FLUSH PRN (00:33)
[2021-08-09] MEDS ORDERED: Sodium Chloride 0.9% 10 ML Syringe FLUSH PRN (00:33)
[2021-08-09 01:37] LABS: BLOOD UREA NITROGEN,BUN 16 mg/dL (7.0-18.0); CARBON DIOXIDE,CO2 26.1 mmol/L (21.0-32.0); CHLORIDE,CL 102 mmol/L (98-107); GLUCOSE RANDOM 164 mg/dL (74-106); POTASSIUM,K 4.3 mmol/L (3.5-5.1); SODIUM,NA 138 mmol/L (136-148)
[2021-08-09] MEDS ORDERED: Amoxicillin/Clavulanate K 875-125 MG Tab PO ONE (02:52)
[2021-08-09 03:44] LABS: CORONAVIRUS COVID-19 NAA NEGATIVE (NEGATIVE); INFLUENZA A NAA NEGATIVE (NEGATIVE); INFLUENZA B NAA NEGATIVE (NEGATIVE); RESPIRATORY SYNCYTIAL VIR NAA NEGATIVE (NEGATIVE)
--- NOTE | 2021-08-09 04:18 | EDM.PDOC ---
ED HPI GENERAL MEDICAL PROBLEM - General Chief Complaint: Respiratory Problem Stated Complaint: DIFFICULTY BREATHING AND SWALLOWING Time Seen by Provider: 08/09/21 00:21 - History of Present Illness INITIAL COMMENTS - FREE TEXT/NARRATIVE: HPI HISTORY AND PHYSICAL: History of present illness: This is a 50-year-old gentleman who presents ER today secondary to episodes of difficulty breathing and feel like there is a band like sensation around his neck. Patient had a recent admission here secondary to episodes of hypoxia that improved with neb treatments. Patient was in hospital and had a negative Covid test, negative influenza test, negative CTA of his chest. Patient had an echocardiogram as well and the report appears to be relatively unremarkable. Patient was recommended to follow-up with pulmonary in order to get tested for obstructive sleep apnea. While in the hospital it was felt that a possibility of his symptoms was angioedema from lisinopril so that was switched lisinopril to losartan which she has been taking. Patient reports that he completed his antibiotics and his steroids yesterday. He reports that has been having symptoms where he feels something wrapping around his neck when he lays flat. His reports that he had to stay sitting up in order to feel comfortable over the last several days. Patient denies any recent fevers, shakes, chills. He denies any nausea or vomiting but does have approximately 4-5 loose bowel movements daily for the last 2 to 3 days. Patient denies any dysuria, frequency, urgency. Patient denies any sore throat or ear pain. Patient reports he has some sinus congestion and nasal drainage. Review of systems: As per history of present illness and below otherwise all systems reviewed and negative. Past medical history: As per history of present illness and as reviewed below otherwise noncontributory. Surgical history: As per history of present illness and as reviewed below otherwise noncontributory. Social history: No reported history of drug abuse. Family history: As per history of present illness and as reviewed below otherwise noncontributory. Physical exam: This patient was seen and evaluated during the 2019 SARS-CoV-2 novel coronavirus pandemic period. Community viral transmission is ongoing at time of this encounter and the emergency department is operating under pandemic response procedures. Constitutional: Patient is oriented to person, place, and time. Appears well- developed and well-nourished. No distress. HEENT: Moist mucous membranes Head: Normocephalic and atraumatic Eyes: Right eye exhibits no discharge. Left eye exhibits no discharge. No scleral icterus Neck: Normal range of motion. No tracheal deviation present. Cardiovascular: Normal rate and regular rhythm. Pulmonary: Effort normal, no respiratory distress. No wheezing rales or rhonchi. No E to a changes. No evidence of pneumonia. Equal breath sounds bilaterally. Abdominal: No distention Musculoskeletal: Normal range of motion Neurologic: Alert and oriented to person, place and time. Skin: [place], warm and dry. Psychiatric: Normal mood and affect. Behavior is normal. Judgment and thought content normal. Nursing note and vital signs have been reviewed Diagnostics: CT soft tissue neck: Patient refused secondary to inability to lay flat from nasal congestion and inability to breathe during the procedure. Chest Xray: Normal cardiac silhouette No infiltrates or effusions identified. No PTX No evidence of acute bony fracture. As interpreted by ER MD: Raul August 09, 2021 12:12 AM: EKG: As interpreted by ER physician: Raul: Nonspecific ST-T wave abnormalities Normal axis No evidence of ST elevation WI Normal sinus rhythm heart rate of 93 Therapeutics: Decadron 10 mg IV, DuoNeb x1, Augmentin 875 mg p.o. Assessment and plan: 50-year-old gentleman who presents ER today with complaint of difficulty breathing that is been intermittent since his discharge from the hospital. In the ED, the patient's pulse ox is remained stable between 92 to 96% on room air. During his prior evaluation in the ED he was admitted secondary to hypoxia however this appears to have resolved. Patient had a recent chest x-ray which was unremarkable. Patient had recent CTA of his chest which was unremarkable. Patient's labs are all within normal limits. Patient's main complaint is a closing sensation around his throat whenever he lays flat. Patient has no actual shortness of breath from a pulmonary standpoint but does feels like he is getting choked around his neck whenever he lays flat. Patient's oropharynx is clear without any evidence of angioedema. Patient oropharynx has no evidence of exudate. Patient has no abnormal lymphadenopathy. I had wanted to obtain a CT scan of his neck to rule out any occult pathology that might give the symptoms. It is unclear whether or not the symptoms are from a continued bronchitis/upper respiratory infection. It appears that he was improving while he was on the antibiotic and steroid however his symptoms worsen after he completed them. I will start him on Augmentin and prednisone for another round to see if that might help. Patient was instructed to return to the ED if his symptoms should return. Patient appears extremely comfortable in the room, he is reading in the comic strip sitting up speaking in full sentences in no acute distress. Reassessment at the time of disposition demonstrates that the patient is in no acute distress. The patient has remained stable throughout the entire ED visit and is without objective evidence for acute process requiring urgent intervention or hospitalization. The patient is stable for discharge, counseling is provided as documented above, discussed symptomatic treatment and specific conditions for return. I have spoken with the patient/caregiver and discussed todays findings, in addition to providing specific details for the plan of care. Questions are answered and there is agreement with the plan. Definitive disposition and diagnosis as appropriate pending reevaluation and review of above. chest Pain Score (Numeric/FACES): 5 - Related Data Allergies Allergy/AdvReac Type Severity Reaction Status Date / Time No Known Allergies Allergy Verified 08/02/21 21:39 Home Meds: Home Meds Albuterol Sulfate [Albuterol Sulfate Hfa] 2 inh IH Q4H PRN 08/03/21 [History] Ipratropium/Albuterol Sulfate [Iprat-Albut 0.5-3(2.5) mg/3 ml] 3 ml NEB QID 08/03/21 [History] Losartan Potassium 25 mg PO DAILY #30 tablet 08/03/21 [Rx] Pioglitazone [Actos] 7.5 mg PO ACBREAKFAST 08/03/21 [History] glyBURIDE [Glyburide] 2.5 mg PO DAILY 08/03/21 [History] hydroCHLOROthiazide [Hydrochlorothiazide] 12.5 mg PO DAILY #30 tablet 08/03/21 [Rx] metFORMIN [Glucophage] 425 mg PO DAILY 08/03/21 [History] Past Medical History HEENT History: Reports: None Cardiovascular History: Reports: None Respiratory History: Reports: Other (See Below) Other Respiratory History: Asthma- borderline per patient Gastrointestinal History: Reports: None Musculoskeletal History: Reports: Back Pain, Chronic Other Musculoskeletal History: fell 30 years ago, disc problem since Psychiatric History: Reports: None Endocrine/Metabolic History: Reports: Diabetes, Type II Dermatologic History: Reports: None - Infectious Disease History Infectious Disease History: Reports: None, Novel Coronavirus - Past Surgical History Head Surgeries/Procedures: Reports: None HEENT Surgical History: Reports: None Respiratory Surgical History: Reports: None GI Surgical History: Reports: None Male Surgical History: Reports: None Neurological Surgical History: Reports: None Musculoskeletal Surgical History: Reports: None Social & Family History - Family History Family Medical History: No Pertinent Family History Cardiac: Reports: CAD, Heart Failure - Tobacco Use Tobacco Use Status *Q: Never Tobacco User - Caffeine Use Caffeine Use: Reports: Coffee - Recreational Drug Use Recreational Drug Use: No ED ROS GENERAL - Review of Systems Review Of Systems: See Below ED EXAM, GENERAL - Physical Exam Exam: See Below Course - Vital Signs Last Recorded V/S: Last Vital Signs Temp 97.5 F 08/09/21 00:11 Pulse 121 H 08/09/21 03:02 Resp 18 08/09/21 03:02 BP 121/81 08/09/21 03:02 Pulse Ox 98 08/09/21 03:02 - Orders/Labs/Meds Orders: Active Orders 24 hr Category Date Time Status Chest 1V Frontal [CR] Stat Exams 08/09/21 04:20 Taken Sodium Chloride 0.9% [Saline Flush] Med 08/09/21 00:33 Active 10 ml FLUSH ASDIRECTED PRN Sodium Chloride 0.9% [Saline Flush] Med 08/09/21 00:33 Active 2.5 ml FLUSH ASDIRECTED PRN Saline Lock Insert [OM.PC] Stat Oth 08/09/21 00:33 Ordered Medication Orders Sodium Chloride (Sodium Chloride 0.9% 10 Ml Syringe) 10 ml FLUSH ASDIRECTED PRN PRN Reason: Keep Vein Open Last Admin: 08/09/21 01:09 Dose: 10 ml Documented by: ANTONIO Sodium Chloride (Sodium Chloride 0.9% 2.5 Ml Syringe) 2.5 ml FLUSH ASDIRECTED PRN PRN Reason: Keep Vein Open Last Admin: 08/09/21 01:09 Dose: 2.5 ml Documented by: ANTONIO Labs: Laboratory Tests 08/09/21 08/09/21 08/09/21 Range/Units 00:59 00:59 02:57 WBC 12.38 H (4.0-11.0) K/uL RBC 4.99 (4.50-5.90) M/uL Hgb 14.8 (13.0-17.0) g/dL Hct 43.8 (38.0-50.0) % MCV 87.8 (80.0-98.0) fL MCH 29.7 (27.0-32.0) pg MCHC 33.8 (31.0-37.0) g/dL RDW Std Deviation 45.2 (28.0-62.0) fl RDW Coeff of [place] 14 (11.0-15.0) % Plt Count 260 (150-400) K/uL MPV 10.10 (7.40-12.00) fL Neut % (Auto) 61.2 (48.0-80.0) % Lymph % (Auto) 30.6 (16.0-40.0) % [place] % (Auto) 6.9 (0.0-15.0) % Eos % (Auto) 1.1 (0.0-7.0) % Baso % (Auto) 0.2 (0.0-1.5) % Neut # (Auto) 7.6 H (1.4-5.7) K/uL Lymph # (Auto) 3.8 H (0.6-2.4) K/uL [place] # (Auto) 0.9 H (0.0-0.8) K/uL Eos # (Auto) 0.1 (0.0-0.7) K/uL Baso # (Auto) 0.0 (0.0-0.1) K/uL Nucleated RBC % 0.0 /100WBC Nucleated RBCs # 0 K/uL Sodium 138 (136-148) mmol/L Potassium 4.3 (3.5-5.1) mmol/L Chloride 102 (98-107) mmol/L Carbon Dioxide 26.1 (21.0-32.0) mmol/L BUN 16 (7.0-18.0) mg/dL Creatinine 1.0 (0.8-1.3) mg/dL Est Cr Clr Drug Dosing 100.47 mL/min Estimated GFR (MDRD) > 60.0 ml/min Glucose 164 H (74-106) mg/dL Calcium 9.6 (8.5-10.1) mg/dL Total Bilirubin 0.2 (0.2-1.0) mg/dL AST 27 (15-37) IU/L ALT 65 H (14-63) IU/L Alkaline Phosphatase 61 (46-116) U/L Troponin I < 0.050 (0.000-0.056) ng/mL Total Protein 7.2 (6.4-8.2) g/dL Albumin 3.5 (3.4-5.0) g/dL Globulin 3.7 (2.6-4.0) g/dL Albumin/Globulin Ratio 0.9 (0.9-1.6) Influenza Type A RNA NEGATIVE (NEGATIVE) RSV RNA (INAAT) NEGATIVE (NEGATIVE) Influenza Type B RNA NEGATIVE (NEGATIVE) SARS-CoV-2 RNA (JANICE) NEGATIVE (NEGATIVE) Group A Strep (PCR) (NOT DETECT) 08/09/21 Range/Units 02:57 WBC (4.0-11.0) K/uL RBC (4.50-5.90) M/uL Hgb (13.0-17.0) g/dL Hct (38.0-50.0) % MCV (80.0-98.0) fL MCH (27.0-32.0) pg MCHC (31.0-37.0) g/dL RDW Std Deviation (28.0-62.0) fl RDW Coeff of [place] (11.0-15.0) % Plt Count (150-400) K/uL MPV (7.40-12.00) fL Neut % (Auto) (48.0-80.0) % Lymph % (Auto) (16.0-40.0) % [place] % (Auto) (0.0-15.0) % Eos % (Auto) (0.0-7.0) % Baso % (Auto) (0.0-1.5) % Neut # (Auto) (1.4-5.7) K/uL Lymph # (Auto) (0.6-2.4) K/uL [place] # (Auto) (0.0-0.8) K/uL Eos # (Auto) (0.0-0.7) K/uL Baso # (Auto) (0.0-0.1) K/uL Nucleated RBC % /100WBC Nucleated RBCs # K/uL Sodium (136-148) mmol/L Potassium (3.5-5.1) mmol/L Chloride (98-107) mmol/L Carbon Dioxide (21.0-32.0) mmol/L BUN (7.0-18.0) mg/dL Creatinine (0.8-1.3) mg/dL Est Cr Clr Drug Dosing mL/min Estimated GFR (MDRD) ml/min Glucose (74-106) mg/dL Calcium (8.5-10.1) mg/dL Total Bilirubin (0.2-1.0) mg/dL AST (15-37) IU/L ALT (14-63) IU/L Alkaline Phosphatase (46-116) U/L Troponin I (0.000-0.056) ng/mL Total Protein (6.4-8.2) g/dL Albumin (3.4-5.0) g/dL Globulin (2.6-4.0) g/dL Albumin/Globulin Ratio (0.9-1.6) Influenza Type A RNA (NEGATIVE) RSV RNA (INAAT) (NEGATIVE) Influenza Type B RNA (NEGATIVE) SARS-CoV-2 RNA (JANICE) (NEGATIVE) Group A Strep (PCR) NOT DETECTED (NOT DETECT) Meds: Medications Generic Name Dose Route Start Last Admin Trade Name Freq PRN Reason Stop Dose Admin Sodium Chloride 10 ml 08/09/21 00:33 08/09/21 01:09 Sodium Chloride 0.9% 10 Ml Syringe FLUSH 10 ml ASDIRECTED PRN Administration Keep Vein Open Sodium Chloride 2.5 ml 08/09/21 00:33 08/09/21 01:09 Sodium Chloride 0.9% 2.5 Ml Syringe FLUSH 2.5 ml ASDIRECTED PRN Administration Keep Vein Open Discontinued Medications Generic Name Dose Route Start Last Admin Trade Name Freq PRN Reason Stop Dose Admin Albuterol/Ipratropium 3 ml 08/09/21 00:33 08/09/21 01:08 Albuterol/Ipratropium 3.0-0.5 Mg/3 Ml Neb Soln NEB 08/09/21 00:34 3 ml ONETIME ONE Administration Amoxicillin/Clavulanate Potassium 1 tab 08/09/21 02:52 08/09/21 03:00 Amoxicillin/Clavulanate K 875-125 Mg Tab PO 01/02/22 02:53 1 tab ONETIME ONE Administration Dexamethasone 10 mg 08/09/21 00:33 08/09/21 01:09 Dexamethasone 10 Mg/Ml Sdv IVPUSH 08/09/21 00:34 10 mg ONETIME ONE Administration Departure - Departure Time of Disposition: 04:18 Disposition: Home, Self-Care 01 Condition: Good Clinical Impression: Dyspnea, Upper respiratory infection - Discharge Information Instructions: Shortness of Breath, Adult, [id number], Upper Respiratory Infection, Adult Referrals: PCP,None [Primary Care Provider] - Forms: ED Department Discharge Additional Instructions: You were seen and evaluated in ER today secondary to difficulty breathing when you lay flat and a choking sensation that occurs when you lay flat. The etiology of your symptoms today are unclear. Your blood tests are all within normal limits. We will start you on a second course of antibiotics to take as well as a second round of steroids. Please take the Augmentin 875 mg twice a day for 10 days and prednisone 40 mg daily for 5 days. Please make an appointment to follow-up with your family doctor within the week for reevaluation. Please return to the ER if you start developing any new or concerning symptoms. The following information is given to patients seen in the emergency department who are being discharged to home. This information is to outline your options for follow-up care. We provide all patients seen in our emergency department with a follow-up referral. The need for follow-up, as well as the timing and circumstances, are variable depending upon the specifics of your emergency department visit. If you don't have a primary care physician on staff, we will provide you with a referral. We always advise you to contact your personal physician following an emergency department visit to inform them of the circumstance of the visit and for follow-up with them and/or the need for any referrals to a consulting spec ialist. The emergency department will also refer you to a specialist when appropriate. This referral assures that you have the opportunity for follow-up care with a specialist. All of these measure are taken in an effort to provide you with optimal care, which includes your follow-up. Under all circumstances we always encourage you to contact your private physician who remains a resource for coordinating your care. When calling for follow-up care, please make the office aware that this follow-up is from your recent emergency room visit. If for any reason you are refused follow-up, please contact the Emergency Department at and asked to speak to the emergency department charge nurse. [facility] - [facility] [address], [place] [address] [facility] [address] [place] [address] Sepsis Event Note (ED) - Evaluation Sepsis Screening Result: No Definite Risk - Focused Exam Vital Signs: Vital Signs Temp Pulse Resp BP Pulse Ox 08/09/21 03:02 121 H 18 121/81 98 08/09/21 01:30 90 96 08/09/21 00:11 97.5 F 100 18 143/97 H 96 - My Orders Last 24 Hours: My Active Orders 08/09/21 00:33 Sodium Chloride 0.9% [Saline Flush] 10 ml FLUSH ASDIRECTED PRN Sodium Chloride 0.9% [Saline Flush] 2.5 ml FLUSH ASDIRECTED PRN Saline Lock Insert [OM.PC] Stat 08/09/21 04:20 Chest 1V Frontal [CR] Stat - Assessment/Plan Last 24 Hours: My Active Orders 08/09/21 00:33 Sodium Chloride 0.9% [Saline Flush] 10 ml FLUSH ASDIRECTED PRN Sodium Chloride 0.9% [Saline Flush] 2.5 ml FLUSH ASDIRECTED PRN Saline Lock Insert [OM.PC] Stat 08/09/21 04:20 Chest 1V Frontal [CR] Stat
--- NOTE | 2021-08-09 04:39 | CR ---
Indication: Dyspnea Technique: Chest 1 view Comparison: Chest x-ray 08/02/2021 Findings/Impression: Cardiovascular and mediastinum: Mild cardiomegaly. Lungs and pleural space: Lungs are clear. No sign of infiltrate or mass. No sign of pleural effusion. No pneumothorax. Bones and soft tissues: No acute findings. Dictated by Gavin Lopez MD @ 08/09/2021 4:39:22 AM (Electronically Signed)
[2021-08-09 05:15] VITALS: BP 146/91; PULSE 90
== END 2021-08-09 04:49 | disposition home or self-care (01) ==
LOC: MW.ED 00:07
DX: J06.9 Acute upper respiratory infection, unspecified (principal); J45.909 Unspecified asthma, uncomplicated; E11.9 Type 2 diabetes mellitus without complications; Z79.84 Long term (current) use of oral hypoglycemic drugs; Z79.899 Other long term (current) drug therapy; Z20.822 Contact with and (suspected) exposure to COVID-19
CPT/HCPCS: 0241U; 36415; 71045; 80053; 84484; 85025; 87651; 93005; 96374; 99285; A9270; J1100; J7620-GY

== ENCOUNTER 2023-06-29 14:32 | Observation (INO) | payer BC ==
[2023-06-29 15:03] LABS: BASOPHILS ABSOLUTE AUTO 0.03 K/uL (0.00-0.20); BASOPHILS PERCENT AUTO 0.3 % (0.0-1.0); EOSINOPHILS ABSOLUTE AUTO 0.11 K/uL (0.00-0.45); EOSINOPHILS PERCENT AUTO 0.9 % (0.0-6.0); HEMATOCRIT 44.2 % (42.0-52.0); HEMOGLOBIN 14.8 g/dL (14.0-18.0); IMMATURE GRAN ABSOLUTE AUTO 0.05 K/uL (0.00-0.05); IMMATURE GRAN PERCENT AUTO 0.4 % (0.0-0.4); LYMPHOCYTES ABSOLUTE AUTO 1.53 K/uL (1.00-4.80); LYMPHOCYTES PERCENT AUTO 12.9 % (24.0-44.0); MEAN CORPUSCULAR HEMOGLOBIN 29.4 pg (28.0-32.0); MEAN CORPUSCULAR HGB CONC 33.5 g/dL (32.0-36.0); MEAN CORPUSCULAR VOLUME 87.7 fL (83.0-99.0); MEAN PLATELET VOLUME 9.8 fL (9.4-12.4); MONOCYTES ABSOLUTE AUTO 0.83 K/uL (0.00-0.80); NEUTROPHILS ABSOLUTE AUTO 9.33 K/uL (1.80-7.70); NEUTROPHILS PERCENT AUTO 78.5 % (41.0-71.0); PLATELET COUNT,PLT 238 K/uL (150-400); RED BLOOD CELL COUNT 5.04 M/uL (4.52-5.90); WHITE BLOOD CELL COUNT,WBC 11.88 K/uL (3.9-11.3)
[2023-06-29 15:28] LABS: A/G RATIO 1.1 (0.9-1.6); ALBUMIN 3.9 g/dL (3.4-5.0); BILIRUBIN TOTAL 0.4 mg/dL (0.2-1.0); CALCIUM 9.7 mg/dL (8.5-10.1); CARBON DIOXIDE,CO2 28.5 mmol/L (21.0-32.0); CREATININE 1.1 mg/dL (0.8-1.3); EST CRCL DRUG DOSING (CG) 89.26 mL/min; POTASSIUM,K 3.7 mmol/L (3.5-5.1); PROTEIN TOTAL,TP 7.6 g/dL (6.4-8.2)
[2023-06-29 15:55] LABS: CORONAVIRUS COVID-19 NAA NEGATIVE (NEGATIVE); INFLUENZA A NAA NEGATIVE (NEGATIVE); INFLUENZA B NAA NEGATIVE (NEGATIVE); RESPIRATORY SYNCYTIAL VIR NAA NEGATIVE (NEGATIVE)
[2023-06-29] MEDS ORDERED: methylPREDNISolone Sodium Succinate 125 MG/2 ML SDV IM ONE (15:57)
[2023-06-29] MEDS ORDERED: Levofloxacin 750 MG Tab PO STA (16:00)
[2023-06-29] MEDS ORDERED: Sodium Chloride 0.9% 2.5 ML Syringe FLUSH PRN (16:04)
[2023-06-29] MEDS ORDERED: cefTRIAXone 1 GM in Sodium Chloride 0.9% 50 ML IV ONE (16:04)
[2023-06-29] MEDS ORDERED: Sodium Chloride 0.9% 10 ML Syringe FLUSH PRN (16:04)
[2023-06-29] MEDS ORDERED: methylPREDNISolone Sodium Succinate 125 MG/2 ML SDV IVPUSH STA (16:05)
[2023-06-29] MEDS ORDERED: 50% Dextrose in Water 50 ML Syringe IVPUSH PRN (17:52)
[2023-06-29] MEDS ORDERED: Glucagon,Human Recombinant 1 MG Vial IM PRN (17:52)
[2023-06-29] MEDS ORDERED: Ondansetron 4 MG/2 ML SDV IVPUSH PRN (17:52)
[2023-06-29] MEDS ORDERED: Polyethylene Glycol 3350 Powder 17 GM Packet PO PRN (17:52)
[2023-06-29] MEDS ORDERED: Acetaminophen 325 MG Tab PO PRN (17:52)
[2023-06-29] MEDS ORDERED: Azithromycin 500 MG in Sodium Chloride 0.9% 250 ML IV SCH (18:00)
[2023-06-29] MEDS ORDERED: Enoxaparin 40 MG/0.4 ML Syringe SUBCUT SCH (18:00)
[2023-06-29] MEDS ORDERED: Furosemide 40 MG in Sodium Chloride 0.9% 50 ML IV ONE (18:05)
[2023-06-29] MEDS ORDERED: Furosemide 40 MG/4 ML VIAL IV ONE (18:15)
[2023-06-29 18:34] LABS: HEMOGLOBIN A1C 7.1 %
[2023-06-29] MEDS: Albuterol/Ipratropium 3.0-0.5 MG/3 ML Neb Soln NEB SCH (19:44)
[2023-06-30 06:14] LABS: BASOPHILS ABSOLUTE AUTO 0.01 K/uL (0.00-0.20); BASOPHILS PERCENT AUTO 0.1 % (0.0-1.0); HEMATOCRIT 40.9 % (42.0-52.0); IMMATURE GRAN ABSOLUTE AUTO 0.03 K/uL (0.00-0.05); IMMATURE GRAN PERCENT AUTO 0.2 % (0.0-0.4); LYMPHOCYTES ABSOLUTE AUTO 1.18 K/uL (1.00-4.80); LYMPHOCYTES PERCENT AUTO 9.4 % (24.0-44.0); MEAN CORPUSCULAR HEMOGLOBIN 30.2 pg (28.0-32.0); MEAN CORPUSCULAR HGB CONC 34.2 g/dL (32.0-36.0); MEAN CORPUSCULAR VOLUME 88.1 fL (83.0-99.0); MEAN PLATELET VOLUME 10.2 fL (9.4-12.4); NEUTROPHILS ABSOLUTE AUTO 10.89 K/uL (1.80-7.70); NEUTROPHILS PERCENT AUTO 86.3 % (41.0-71.0); PLATELET COUNT,PLT 262 K/uL (150-400); RED BLOOD CELL COUNT 4.64 M/uL (4.52-5.90); WHITE BLOOD CELL COUNT,WBC 12.61 K/uL (3.9-11.3)
[2023-06-30 06:37] LABS: A/G RATIO 0.9 (0.9-1.6); ALBUMIN 3.4 g/dL (3.4-5.0); BILIRUBIN TOTAL 0.3 mg/dL (0.2-1.0); CALCIUM 9.1 mg/dL (8.5-10.1); CARBON DIOXIDE,CO2 25.8 mmol/L (21.0-32.0); EST CRCL DRUG DOSING (CG) 98.18 mL/min; POTASSIUM,K 4.1 mmol/L (3.5-5.1); PROTEIN TOTAL,TP 7.4 g/dL (6.4-8.2)
[2023-06-30] MEDS: Albuterol/Ipratropium 3.0-0.5 MG/3 ML Neb Soln NEB SCH ×3 (06:49→11:43)
[2023-06-30] MEDS: Insulin Aspart 100 Units/ML 3 ML Pen SUBCUT SCH ×2 (07:48→11:12)
[2023-06-30] MEDS ORDERED: IRBESARTAN 150 MG PO SCH (09:00)
[2023-06-30] MEDS ORDERED: Hydrochlorothiazide 12.5 MG Cap PO SCH (09:00)
[2023-06-30] MEDS ORDERED: methylPREDNISolone Sodium Succinate 40 MG/1 ML SDV IVPUSH SCH (09:00)
[2023-06-30] MEDS ORDERED: Fluticasone/Umeclidin/Vilanter [Trelegy Ellipta 100-62.5- INH SCH (09:00)
[2023-06-30] MEDS ORDERED: LOSARTAN POTASSIUM 25 MG PO SCH (09:00)
[2023-06-30] MEDS ORDERED: Doxycycline 100 MG Cap PO SCH (09:45)
[2023-06-30 12:42] VITALS: BP 143/78; PULSE 91
[2023-06-30] MEDS ORDERED: cefTRIAXone 1 GM in Sodium Chloride 0.9% 50 ML IV SCH (16:00)
[2023-07-01] MEDS ORDERED: Pioglitazone 15 MG Tab PO SCH (07:30)
[2023-07-01] MEDS ORDERED: glyBURIDE 5 MG Tab PO SCH (09:00)
== END 2023-06-30 13:00 | disposition home or self-care (01) ==
LOC: MW.ED 14:32 → MW.MS 16:17
PROVIDERS: ADMIT Family Medicine; ATTEND Family Medicine
DX: J18.9 Pneumonia, unspecified organism (principal); E11.51 Type 2 diabetes mellitus with diabetic peripheral angiopathy without gangrene; I10 Essential (primary) hypertension; J45.909 Unspecified asthma, uncomplicated; E66.01 Morbid (severe) obesity due to excess calories; Z68.43 Body mass index [BMI] 50.0-59.9, adult; Z20.822 Contact with and (suspected) exposure to COVID-19; Z79.84 Long term (current) use of oral hypoglycemic drugs; Z79.899 Other long term (current) drug therapy
CPT/HCPCS: 0241U; 36415; 71045; 80053; 82947; 83036; 83880; 84484; 85025; 93005; 94640; 96374; 96375; 99285; A9270; J0456; J0696; J1650; J1940; J2920; J2930; J3490; J7050; 93010; 96367; 96372; 96376; 99284; G0378; J7620-GY

== ENCOUNTER 2023-08-06 20:06 | Emergency (ER) | payer BC ==
[2023-08-06] MEDS ORDERED: Sodium Chloride 0.9% 2.5 ML Syringe FLUSH PRN (20:54)
[2023-08-06] MEDS ORDERED: Sodium Chloride 0.9% 10 ML Syringe FLUSH PRN (20:54)
[2023-08-06 21:24] LABS: BASOPHILS ABSOLUTE AUTO 0.04 K/uL (0.00-0.20); BASOPHILS PERCENT AUTO 0.5 % (0.0-1.0); EOSINOPHILS ABSOLUTE AUTO 0.08 K/uL (0.00-0.45); HEMATOCRIT 42.5 % (42.0-52.0); HEMOGLOBIN 14.5 g/dL (14.0-18.0); IMMATURE GRAN ABSOLUTE AUTO 0.04 K/uL (0.00-0.05); IMMATURE GRAN PERCENT AUTO 0.5 % (0.0-0.4); LYMPHOCYTES PERCENT AUTO 10.8 % (24.0-44.0); MEAN CORPUSCULAR HEMOGLOBIN 29.9 pg (28.0-32.0); MEAN CORPUSCULAR HGB CONC 34.1 g/dL (32.0-36.0); MEAN CORPUSCULAR VOLUME 87.6 fL (83.0-99.0); MEAN PLATELET VOLUME 9.7 fL (9.4-12.4); MONOCYTES PERCENT AUTO 9.6 % (0.0-8.0); NEUTROPHILS ABSOLUTE AUTO 6.46 K/uL (1.80-7.70); NEUTROPHILS PERCENT AUTO 77.6 % (41.0-71.0); PLATELET COUNT,PLT 255 K/uL (150-400); RED BLOOD CELL COUNT 4.85 M/uL (4.52-5.90); WHITE BLOOD CELL COUNT,WBC 8.32 K/uL (3.9-11.3)
[2023-08-06] MEDS ORDERED: methylPREDNISolone Sodium Succinate 125 MG/2 ML SDV IVPUSH ONE (21:24)
[2023-08-06 21:42] LABS: CORONAVIRUS COVID-19 NAA POSITIVE (NEGATIVE); INFLUENZA A NAA NEGATIVE (NEGATIVE); INFLUENZA B NAA NEGATIVE (NEGATIVE); RESPIRATORY SYNCYTIAL VIR NAA NEGATIVE (NEGATIVE)
[2023-08-06 21:53] LABS: ALBUMIN 3.5 g/dL (3.4-5.0); BILIRUBIN TOTAL 0.4 mg/dL (0.2-1.0); CALCIUM 8.9 mg/dL (8.5-10.1); CARBON DIOXIDE,CO2 29.1 mmol/L (21.0-32.0); EST CRCL DRUG DOSING (CG) 98.18 mL/min; POTASSIUM,K 4.7 mmol/L (3.5-5.1); PROTEIN TOTAL,TP 7.1 g/dL (6.4-8.2)
[2023-08-06] MEDS ORDERED: Nirmatrelvir/Ritonavir 300 MG/100 MG Dose Pack PO STA (22:01)
[2023-08-06 22:11] LABS: LACTIC ACID 1.8 mmol/L (0.4-2.0)
[2023-08-07 00:09] VITALS: BP 137/77; PULSE 108
== END 2023-08-07 00:09 | disposition home or self-care (01) ==
LOC: MW.ED 20:06
DX: U07.1 COVID-19 (principal); E11.9 Type 2 diabetes mellitus without complications; I10 Essential (primary) hypertension; J45.909 Unspecified asthma, uncomplicated; Z79.84 Long term (current) use of oral hypoglycemic drugs; Z79.899 Other long term (current) drug therapy
CPT/HCPCS: 0241U; 36415; 71045; 80053; 83605; 83880; 84484; 85025; 85379; 87040; 93005; 96374; 99285; A9270; J2930; J3490

== ENCOUNTER 2024-08-06 06:08 | Emergency (ER) | payer BC ==
[2024-08-06 07:02] LABS: BASOPHILS ABSOLUTE AUTO 0.04 K/uL (0.00-0.20); BASOPHILS PERCENT AUTO 0.3 % (0.0-1.0); EOSINOPHILS ABSOLUTE AUTO 0.19 K/uL (0.00-0.45); EOSINOPHILS PERCENT AUTO 1.5 % (0.0-6.0); HEMATOCRIT 40.7 % (42.0-52.0); HEMOGLOBIN 13.4 g/dL (14.0-18.0); IMMATURE GRAN ABSOLUTE AUTO 0.07 K/uL (0.00-0.05); IMMATURE GRAN PERCENT AUTO 0.6 % (0.0-0.4); LYMPHOCYTES ABSOLUTE AUTO 2.09 K/uL (1.00-4.80); LYMPHOCYTES PERCENT AUTO 16.8 % (24.0-44.0); MEAN CORPUSCULAR HEMOGLOBIN 29.1 pg (28.0-32.0); MEAN CORPUSCULAR HGB CONC 32.9 g/dL (32.0-36.0); MEAN CORPUSCULAR VOLUME 88.3 fL (83.0-99.0); MEAN PLATELET VOLUME 9.2 fL (9.4-12.4); MONOCYTES ABSOLUTE AUTO 0.83 K/uL (0.00-0.80); MONOCYTES PERCENT AUTO 6.7 % (0.0-8.0); NEUTROPHILS ABSOLUTE AUTO 9.25 K/uL (1.80-7.70); NEUTROPHILS PERCENT AUTO 74.1 % (41.0-71.0); PLATELET COUNT,PLT 252 K/uL (150-400); RED BLOOD CELL COUNT 4.61 M/uL (4.52-5.90); WHITE BLOOD CELL COUNT,WBC 12.47 K/uL (3.9-11.3)
[2024-08-06 07:18] LABS: CALCIUM 9.3 mg/dL (8.5-10.1); CARBON DIOXIDE,CO2 30.8 mmol/L (21.0-32.0); CREATININE 1.1 mg/dL (0.8-1.3); EST CRCL DRUG DOSING (CG) 88.22 mL/min; POTASSIUM,K 4.4 mmol/L (3.5-5.1)
[2024-08-06 07:58] VITALS: BP 131/79; PULSE 105
== END 2024-08-06 07:53 | disposition home or self-care (01) ==
LOC: MW.ED 06:08
DX: J18.9 Pneumonia, unspecified organism (principal); I10 Essential (primary) hypertension; E78.00 Pure hypercholesterolemia, unspecified; E11.9 Type 2 diabetes mellitus without complications; J45.909 Unspecified asthma, uncomplicated; Z79.899 Other long term (current) drug therapy; Z79.84 Long term (current) use of oral hypoglycemic drugs; Z75.8 Other problems related to medical facilities and other health care
CPT/HCPCS: 36415; 71045; 71045-26; 80048; 85025; 87428-QW; 93005; 99285

== ENCOUNTER 2024-08-15 16:17 | Emergency (ER) | payer BC ==
[2024-08-15] MEDS ORDERED: Sodium Chloride 0.9% 2.5 ML Syringe FLUSH PRN (17:23)
[2024-08-15] MEDS ORDERED: Sodium Chloride 0.9% 10 ML Syringe FLUSH PRN (17:23)
[2024-08-15] MEDS: cefTRIAXone 1 GM in Sodium Chloride 0.9% 50 ML IV ONE (17:41)
[2024-08-15 17:55] LABS: BASOPHILS ABSOLUTE AUTO 0.04 K/uL (0.00-0.20); BASOPHILS PERCENT AUTO 0.4 % (0.0-1.0); EOSINOPHILS ABSOLUTE AUTO 0.21 K/uL (0.00-0.45); EOSINOPHILS PERCENT AUTO 2.2 % (0.0-6.0); HEMATOCRIT 40.7 % (42.0-52.0); HEMOGLOBIN 13.3 g/dL (14.0-18.0); IMMATURE GRAN ABSOLUTE AUTO 0.04 K/uL (0.00-0.05); IMMATURE GRAN PERCENT AUTO 0.4 % (0.0-0.4); LYMPHOCYTES ABSOLUTE AUTO 2.21 K/uL (1.00-4.80); MEAN CORPUSCULAR HEMOGLOBIN 29.2 pg (28.0-32.0); MEAN CORPUSCULAR HGB CONC 32.7 g/dL (32.0-36.0); MEAN CORPUSCULAR VOLUME 89.5 fL (83.0-99.0); MEAN PLATELET VOLUME 9.4 fL (9.4-12.4); MONOCYTES ABSOLUTE AUTO 0.82 K/uL (0.00-0.80); MONOCYTES PERCENT AUTO 8.5 % (0.0-8.0); NEUTROPHILS PERCENT AUTO 65.5 % (41.0-71.0); PLATELET COUNT,PLT 259 K/uL (150-400); RED BLOOD CELL COUNT 4.55 M/uL (4.52-5.90); WHITE BLOOD CELL COUNT,WBC 9.62 K/uL (3.9-11.3)
[2024-08-15 18:27] LABS: A/G RATIO 0.8 (0.9-1.6); ALBUMIN 3.1 g/dL (3.4-5.0); BILIRUBIN TOTAL 0.4 mg/dL (0.2-1.0); CALCIUM 9.2 mg/dL (8.5-10.1); CARBON DIOXIDE,CO2 28.9 mmol/L (21.0-32.0); CREATININE 0.9 mg/dL (0.8-1.3); EST CRCL DRUG DOSING (CG) 107.82 mL/min
[2024-08-15 18:37] VITALS: BP 107/48; PULSE 93
== END 2024-08-15 18:36 | disposition home or self-care (01) ==
LOC: MW.ED 16:17
DX: J18.9 Pneumonia, unspecified organism (principal); Z75.8 Other problems related to medical facilities and other health care; I10 Essential (primary) hypertension; E78.00 Pure hypercholesterolemia, unspecified; E11.9 Type 2 diabetes mellitus without complications; J45.909 Unspecified asthma, uncomplicated; Z79.899 Other long term (current) drug therapy; Z79.84 Long term (current) use of oral hypoglycemic drugs
CPT/HCPCS: 36415; 71045; 80053; 85025; 93005; 96365; 99285; J0696; J3490

== ENCOUNTER 2024-08-17 16:50 | Emergency (ER) | payer BC | END 2024-08-17 17:35 | disposition left against medical advice (07) | LOC: MW.ED 16:50 | DX: Z53.21 Procedure and treatment not carried out due to patient leaving prior to being seen by health care provider (principal) ==